=== PATIENT | male | born 1945 | race Caucasian/White ===

== ENCOUNTER 2024-11-10 07:18 | Inpatient (IN) | payer OTHER, BC ==
[2024-11-10 08:00] VITALS: BMI 29.5
[2024-11-10 09:01] LABS: EPI CELLS 11 /uL (0-25.1); HYALINE CASTS 3 /uL (0-3.1); URINE APPEARANCE TURBID; URINE BACTERIA 41 /uL (0-1359); URINE BILIRUBIN NEGATIVE (NEGATIVE); URINE COLOR YELLOW; URINE GLUCOSE (UA) 3+ (NEGATIVE); URINE KETONE 1+ (NEGATIVE); URINE LEUK ESTERASE 2+ (NEGATIVE); URINE NITRITE NEGATIVE (NEGATIVE); URINE PROTEIN 3+ (NEGATIVE); URINE WBC 5146 /uL (0-25.8)
[2024-11-10 09:03] LABS: URINE RBC 530 /uL (0-23.9)
[2024-11-10 09:04] LABS: YEAST FEW (NEGATIVE)
[2024-11-10] MEDS: SODIUM CHLORIDE 500 ML IV STA (09:42)
[2024-11-10 10:00] LABS: HEMOGLOBIN 15.7 GM/dL (11.7-16.9); MCHC 34.2 g/dl (32.0-35.9); MEAN CELL VOLUME 84.9 fl (80-96); MEAN PLT VOLUME 8.8 fl (7.5-11.1); PLATELET COUNT 231 10^3/uL (134-434); RBC 5.41 M/mm3 (4.00-5.60); RDW 15.6 % (11.9-15.9); WHITE BLOOD COUNT 11.9 K/mm3 (4.0-10.0)
[2024-11-10 10:01] LABS: VENOUS BASE EXCESS -2.4 mmol/L (-2-2); VENOUS O2 SATURATION 35.2 % (70-80); VENOUS PCO2 43.9 mmHg (38-52); VENOUS PH 7.344 (7.310-7.410)
[2024-11-10 10:03] LABS: INR 1.14 (0.83-1.09); PROTHROMBIN TIME (PATIENT) 12.5 SEC (9.7-13.0)
[2024-11-10 10:06] LABS: ACTIVATED PTT 29.2 SECONDS (25.2-36.5)
[2024-11-10 10:33] LABS: ANISOCYTOSIS 0; MACROCYTOSIS 0; POTASSIUM 3.6 mmol/L (3.5-5.1)
[2024-11-10 10:34] LABS: ALBUMIN 3.6 g/dl (3.4-5.0); BLOOD UREA NITROGEN 32.6 mg/dL (7-18)
[2024-11-10 10:35] LABS: CALCIUM 8.9 mg/dL (8.5-10.1); MAGNESIUM 1.4 mg/dL (1.8-2.4)
[2024-11-10 10:39] LABS: CREATININE 1.9 mg/dL (0.55-1.3)
[2024-11-10] MEDS ORDERED: CEFTRIAXONE 1 G/50 ML PREMIX 50 ML IVPB ONE (11:50)
[2024-11-10] MEDS: CEFTRIAXONE 1 GM in DEXTROSE 5%-WATER - 50 ML IVPB ONE (12:25)
[2024-11-10] MEDS ORDERED: MAGNESIUM SULFATE IN WATER 2 GM/50 ML IVPB IVPB ONE (12:47)
[2024-11-10] MEDS: MAGNESIUM SULFATE IN WATER 2 GM/50 ML IVPB IVPB ONE (12:53)
[2024-11-10] MEDS: MAGNESIUM SULF 50% (8.12 MEQ/2 ML-1 GM VIAL) IVPB ONE (12:53)
[2024-11-10] MEDS: D5-1/2NS+20 MEQ KCL - 20 MEQ/1,000 ML INFUS.BAG IV SCH ×3 (15:40→20:03)
[2024-11-10] MEDS ORDERED: PANTOPRAZOLE SODIUM 40 MG/100 ML BAG IVPB ONE (16:52)
[2024-11-10] MEDS: PANTOPRAZOLE SODIUM 40 MG VIAL IVPUSH SCH (16:59)
[2024-11-10] MEDS ORDERED: INSULIN ASPART SLIDING SCALE (NOVOLOG) 1 VIAL SQ ONE (17:09)
[2024-11-10] MEDS: INSULIN ASPART SLIDING SCALE (NOVOLOG) 1 VIAL SQ SCH ×2 (17:12→18:34)
[2024-11-10 22:01] LABS: LACTIC ACID 2.7 mmol/L (0.4-2.0)
[2024-11-11] MEDS: D5-1/2NS+20 MEQ KCL - 20 MEQ/1,000 ML INFUS.BAG IV SCH ×2 (06:42→20:28)
[2024-11-11] MEDS: INSULIN (LEVEMIR) 100 UNITS/ML UNITS SQ SCH (06:43)
[2024-11-11 07:40] LABS: BASO % 0.2 % (0-2.0); EOS % 0.2 % (0-4.5); HEMATOCRIT 40.4 % (35.4-49); HEMOGLOBIN 13.6 GM/dL (11.7-16.9); LYMPH % 7.7 % (8-40); MCH 28.4 pg (25.7-33.7); MCHC 33.6 g/dl (32.0-35.9); MEAN CELL VOLUME 84.6 fl (80-96); MEAN PLT VOLUME 8.3 fl (7.5-11.1); MONO % 9.3 % (3.8-10.2); NEUT % 82.6 % (42.8-82.8); PLATELET COUNT 184 10^3/uL (134-434); RBC 4.77 M/mm3 (4.00-5.60); RDW 15.4 % (11.9-15.9); WHITE BLOOD COUNT 8.2 K/mm3 (4.0-10.0)
[2024-11-11 08:11] LABS: POTASSIUM 3.6 mmol/L (3.5-5.1)
[2024-11-11 08:19] LABS: ALBUMIN 2.9 g/dl (3.4-5.0)
[2024-11-11 08:21] LABS: MAGNESIUM 1.6 mg/dL (1.8-2.4)
[2024-11-11 08:22] LABS: CREATININE 1.4 mg/dL (0.55-1.3)
[2024-11-11 08:24] LABS: BILIRUBIN,TOTAL 1.5 mg/dL (0.2-1); TOT PROT 6.5 g/dl (6.4-8.2)
[2024-11-11] MEDS: HEPARIN NA (PORCINE) 5,000 UNITS/ML 1ML VIAL SQ SCH (11:21)
[2024-11-11] MEDS: MEMANTINE HCL 5 MG TABLET (UD) PO SCH (11:22)
[2024-11-11] MEDS: ASCORBIC ACID 500 MG TABLET (FP) PO SCH (11:22)
[2024-11-11] MEDS: LISINOPRIL 20 MG TABLET PO SCH (11:22)
[2024-11-11] MEDS: TAMSULOSIN HCL 0.4 MG CAP PO SCH (11:22)
[2024-11-11] MEDS: PANTOPRAZOLE 40 MG TABLET PO SCH (11:22)
[2024-11-11] MEDS: MAGNESIUM 2GM/50ML STERILE WATER IVPB IVPB ONE ×2 (11:22→11:37)
[2024-11-11] MEDS: POTASSIUM CHLORIDE ORAL LIQUID 20 MEQ/15 ML PO ONE ×2 (11:37→11:55)
[2024-11-11 14:42] LABS: LACTIC ACID 2.1 mmol/L (0.4-2.0)
[2024-11-11] MEDS: INSULIN ASPART SLIDING SCALE (NOVOLOG) 1 VIAL SQ SCH (18:23)
[2024-11-11] MEDS: CEFTRIAXONE 2 GM-D5W BAG 2 GM/50 ML BAG IVPB SCH (20:28)
[2024-11-11] MEDS: risperiDONE 0.25 MG TABLET PO SCH (22:23)
[2024-11-11] MEDS: ATORVASTATIN CA 20 MG TABLET (FP) PO SCH (22:23)
[2024-11-11] MEDS: MELATONIN 5 MG TABLETS PO SCH (22:23)
[2024-11-12] MEDS: D5-1/2NS+20 MEQ KCL - 20 MEQ/1,000 ML INFUS.BAG IV SCH (00:12)
[2024-11-12] MEDS: ACETAMINOPHEN 325 MG TABLET (FP) PO PRN (06:02)
[2024-11-12 08:12] LABS: BASO % 0.3 % (0-2.0); EOS % 0.5 % (0-4.5); HEMATOCRIT 35.4 % (35.4-49); HEMOGLOBIN 12.6 GM/dL (11.7-16.9); LYMPH % 11.8 % (8-40); MCH 29.6 pg (25.7-33.7); MCHC 35.5 g/dl (32.0-35.9); MEAN CELL VOLUME 83.4 fl (80-96); MEAN PLT VOLUME 8.5 fl (7.5-11.1); MONO % 8.8 % (3.8-10.2); NEUT % 78.6 % (42.8-82.8); PLATELET COUNT 174 10^3/uL (134-434); RBC 4.25 M/mm3 (4.00-5.60); RDW 15.5 % (11.9-15.9); WHITE BLOOD COUNT 7.6 K/mm3 (4.0-10.0)
[2024-11-12 08:26] LABS: POTASSIUM 3.9 mmol/L (3.5-5.1)
[2024-11-12 08:31] LABS: BLOOD UREA NITROGEN 18.4 mg/dL (7-18)
[2024-11-12 08:33] LABS: CREATININE 1.1 mg/dL (0.55-1.3)
[2024-11-12 08:35] LABS: ALBUMIN 2.6 g/dl (3.4-5.0); MAGNESIUM 1.8 mg/dL (1.8-2.4)
[2024-11-12 08:36] LABS: BILIRUBIN,TOTAL 1.1 mg/dL (0.2-1)
[2024-11-12] MEDS: MAGNESIUM 2GM/50ML STERILE WATER IVPB IVPB ONE (10:10)
[2024-11-13] MEDS ORDERED: D5-1/2NS+20 MEQ KCL - 20 MEQ/1,000 ML INFUS.BAG IV SCH (07:22)
[2024-11-13 10:35] LABS: POTASSIUM 4.1 mmol/L (3.5-5.1)
[2024-11-13 10:45] LABS: ALBUMIN 2.7 g/dl (3.4-5.0); BLOOD UREA NITROGEN 14.6 mg/dL (7-18)
[2024-11-13 10:47] LABS: BILIRUBIN,TOTAL 1.2 mg/dL (0.2-1); TOT PROT 6.4 g/dl (6.4-8.2)
[2024-11-13 10:48] LABS: CREATININE 1.1 mg/dL (0.55-1.3)
[2024-11-13 10:50] LABS: BASO % 0.4 % (0-2.0); CALCIUM 8.2 mg/dL (8.5-10.1); HEMATOCRIT 37.5 % (35.4-49); HEMOGLOBIN 12.8 GM/dL (11.7-16.9); LYMPH % 16.9 % (8-40); MCH 28.8 pg (25.7-33.7); MEAN CELL VOLUME 84.7 fl (80-96); MEAN PLT VOLUME 8.5 fl (7.5-11.1); MONO % 9.3 % (3.8-10.2); NEUT % 71.4 % (42.8-82.8); PLATELET COUNT 177 10^3/uL (134-434); RBC 4.43 M/mm3 (4.00-5.60); RDW 15.3 % (11.9-15.9); WHITE BLOOD COUNT 7.1 K/mm3 (4.0-10.0)
[2024-11-13] MEDS: HEPARIN NA (PORCINE) 5,000 UNITS/ML 1ML VIAL SQ SCH (15:11)
[2024-11-13] MEDS: D5-1/2NS+30 MEQ KCL - 30 MEQ/1,000 ML INFUS.BAG IV SCH (19:36)
[2024-11-14] MEDS: D5-1/2NS+30 MEQ KCL - 30 MEQ/1,000 ML INFUS.BAG IV SCH (06:38)
[2024-11-14] MEDS ORDERED: INSULIN ASPART SLIDING SCALE (NOVOLOG) 1 VIAL SQ ONE ×2 (06:47→07:48)
[2024-11-14] MEDS ORDERED: INSULIN (LEVEMIR) 100 UNITS/ML UNITS SQ ONE ×2 (06:47→07:48)
[2024-11-14 08:18] LABS: BASO % 0.3 % (0-2.0); EOS % 2.7 % (0-4.5); HEMOGLOBIN 12.3 GM/dL (11.7-16.9); LYMPH % 13.7 % (8-40); MCH 28.5 pg (25.7-33.7); MEAN CELL VOLUME 83.8 fl (80-96); MEAN PLT VOLUME 8.2 fl (7.5-11.1); MONO % 8.3 % (3.8-10.2); PLATELET COUNT 180 10^3/uL (134-434); RBC 4.29 M/mm3 (4.00-5.60); RDW 15.2 % (11.9-15.9); WHITE BLOOD COUNT 8.4 K/mm3 (4.0-10.0)
[2024-11-14 08:42] LABS: BLOOD UREA NITROGEN 15.8 mg/dL (7-18); CALCIUM 8.1 mg/dL (8.5-10.1)
[2024-11-14 08:43] LABS: ALBUMIN 2.6 g/dl (3.4-5.0)
[2024-11-14 08:47] LABS: BILIRUBIN,TOTAL 1.1 mg/dL (0.2-1); TOT PROT 6.2 g/dl (6.4-8.2)
[2024-11-15 06:54] LABS: BASO % 0.4 % (0-2.0); EOS % 3.6 % (0-4.5); HEMOGLOBIN 12.3 GM/dL (11.7-16.9); LYMPH % 15.4 % (8-40); MCH 28.5 pg (25.7-33.7); MCHC 34.2 g/dl (32.0-35.9); MEAN CELL VOLUME 83.3 fl (80-96); MEAN PLT VOLUME 8.5 fl (7.5-11.1); MONO % 8.6 % (3.8-10.2); PLATELET COUNT 197 10^3/uL (134-434); RBC 4.32 M/mm3 (4.00-5.60); WHITE BLOOD COUNT 9.6 K/mm3 (4.0-10.0)
[2024-11-15 07:01] LABS: POTASSIUM 4.2 mmol/L (3.5-5.1)
[2024-11-15 07:05] LABS: CALCIUM 8.2 mg/dL (8.5-10.1)
[2024-11-15] MEDS ORDERED: INSULIN (LEVEMIR) 100 UNITS/ML UNITS SQ SCH ×2 (07:38→13:35)
[2024-11-15] MEDS ORDERED: ACETAMINOPHEN 325 MG TABLET (FP) PO PRN (18:12)
[2024-11-15] MEDS: D5-1/2NS+30 MEQ KCL - 30 MEQ/1,000 ML INFUS.BAG IV SCH (18:45)
[2024-11-15] MEDS: INSULIN GLARGINE (LANTUS) 100 UNITS/ML UNITS SQ SCH (19:42)
[2024-11-15] MEDS: ATORVASTATIN CA 20 MG TABLET (FP) PO SCH (21:27)
[2024-11-15] MEDS: INSULIN ASPART SLIDING SCALE (NOVOLOG) 1 VIAL SQ SCH (21:27)
[2024-11-16 09:18] LABS: POTASSIUM 4.4 mmol/L (3.5-5.1)
[2024-11-16 09:31] LABS: BLOOD UREA NITROGEN 11.5 mg/dL (7-18); CALCIUM 8.5 mg/dL (8.5-10.1)
[2024-11-16] MEDS: TAMSULOSIN HCL 0.4 MG CAP PO SCH (09:39)
[2024-11-16] MEDS: ASCORBIC ACID 500 MG TABLET (FP) PO SCH (09:39)
[2024-11-16] MEDS: PANTOPRAZOLE 40 MG TABLET PO SCH (09:39)
[2024-11-16] MEDS: CEFTRIAXONE 2 GM-D5W BAG 2 GM/50 ML BAG IVPB SCH (09:39)
[2024-11-16] MEDS: LISINOPRIL 20 MG TABLET PO SCH (09:39)
[2024-11-16 09:43] LABS: BASO % 0.2 % (0-2.0); EOS % 2.9 % (0-4.5); HEMATOCRIT 36.2 % (35.4-49); HEMOGLOBIN 12.1 GM/dL (11.7-16.9); LYMPH % 10.6 % (8-40); MCH 28.2 pg (25.7-33.7); MCHC 33.3 g/dl (32.0-35.9); MEAN CELL VOLUME 84.6 fl (80-96); MONO % 6.4 % (3.8-10.2); NEUT % 79.9 % (42.8-82.8); PLATELET COUNT 223 10^3/uL (134-434); RBC 4.28 M/mm3 (4.00-5.60); RDW 15.3 % (11.9-15.9); WHITE BLOOD COUNT 12.2 K/mm3 (4.0-10.0)
[2024-11-17] MEDS: INSULIN GLARGINE (LANTUS) 100 UNITS/ML UNITS SQ SCH (07:50)
[2024-11-17 09:09] VITALS: BP 128/67; PULSE 80; RESP 18; TEMP 97.7
[2024-11-17] MEDS: CEFUROXIME AXETIL 500 MG TABLET PO SCH (09:10)
[2024-11-17] MEDS ORDERED: CEFUROXIME AXETIL 500 MG TABLET PO SCH (10:00)
[2024-11-17 10:12] LABS: BASO % 0.3 % (0-2.0); EOS % 3.5 % (0-4.5); HEMATOCRIT 37.3 % (35.4-49); LYMPH % 12.9 % (8-40); MCH 28.7 pg (25.7-33.7); MCHC 34.7 g/dl (32.0-35.9); MEAN CELL VOLUME 82.7 fl (80-96); MEAN PLT VOLUME 7.8 fl (7.5-11.1); MONO % 7.3 % (3.8-10.2); PLATELET COUNT 254 10^3/uL (134-434); RBC 4.51 M/mm3 (4.00-5.60); RDW 15.2 % (11.9-15.9); WHITE BLOOD COUNT 12.2 K/mm3 (4.0-10.0)
== END 2024-11-17 11:15 | DRG 312 ==
LOC: JER 07:18 → JERBED 13:52 → OBSVTOIN 16:05 → J4W 21:10 → J5S 11-15 17:59
PROVIDERS: ADMIT Internal Medicine; ATTEND Internal Medicine
DX: R55 Syncope and collapse (principal); N39.0 Urinary tract infection, site not specified; M62.82 Rhabdomyolysis; I24.89 Other forms of acute ischemic heart disease; N17.9 Acute kidney failure, unspecified; E87.20 Acidosis, unspecified; I12.9 Hypertensive chronic kidney disease with stage 1 through stage 4 chronic kidney disease, or unspecified chronic kidney disease; N18.9 Chronic kidney disease, unspecified; E11.9 Type 2 diabetes mellitus without complications; E78.5 Hyperlipidemia, unspecified; E86.0 Dehydration; E83.42 Hypomagnesemia; F01.50 Vascular dementia, unspecified severity, without behavioral disturbance, psychotic disturbance, mood disturbance, and anxiety; N40.1 Benign prostatic hyperplasia with lower urinary tract symptoms; R33.9 Retention of urine, unspecified
CPT/HCPCS: 0241U-QW; 36415; 70450-TC; 71045-TC-FY; 72125-TC; 72170-TC-FY; 76705-TC; 76775-TC; 76856-TC; 80048; 80053; 81003; 82550; 82553; 82803; 82962; 83036; 83605; 83690; 83735; 84100; 84484; 85025; 85379; 85610; 85651; 85730; 86140; 86850; 86900; 86901; 87040; 87086; 93005; 93010; 97116-GP; 97162-GP; 99291; G0378; J1644

== ENCOUNTER 2025-02-15 15:45 | Emergency (ER) | payer OTHER, BC ==
[2025-02-15 16:36] VITALS: PULSE 91; RESP 18; TEMP 98.9; BMI 34.2
[2025-02-15] MEDS ORDERED: ACETAMINOPHEN 325 MG TABLET (FP) ONE (17:14)
[2025-02-15] MEDS ORDERED: CEPHALEXIN MONOHYDRATE 250 MG CAPSULE (FP) ONE (17:14)
[2025-02-15] MEDS: ACETAMINOPHEN 500 MG TABLET (FP) PO ONE (17:34)
[2025-02-15] MEDS: CEPHALEXIN MONOHYDRATE 250 MG CAPSULE (FP) PO ONE (17:34)
[2025-02-15] MEDS: ACETAMINOPHEN 1000 MG/100 ML BAG IVPB ONE (17:35)
[2025-02-15 21:18] VITALS: BP 138/76
== END 2025-02-15 21:18 | disposition home or self-care (01) ==
LOC: JER 15:45
DX: L60.0 Ingrowing nail (principal); M79.674 Pain in right toe(s); M79.675 Pain in left toe(s); M79.89 Other specified soft tissue disorders
CPT/HCPCS: 99283-25